=== PATIENT | male | born 1970 | race Caucasian/White ===

== ENCOUNTER 2024-03-24 21:50 | Emergency (ER) | payer BC, SELFPAY ==
--- NOTE | 2024-03-25 00:08 | ED.GENMED ---
History of Present Illness
General
Chief Complaint: Skin Problem
Source: patient
Exam Limitations: none
Time Seen by Provider: 03/24/24 23:47
Nursing documentation reviewed up to this point in time: agreed with
History of Present Illness
History of Present Illness:
Patient presents to ED secondary to redness and swelling over his left forearm noted this morning, which has increased in size as well as streaking of redness up his arm. Denies fever or chills. Denies nausea or vomiting. Denies trauma. Denies
recollection of insect bite. Denies itching sensation. Denies previous history of similar symptoms.
Past History
Past History
ED Past Medical History: Psychiatric (Anxiety) and Other (Migraines)
ED Past Surgical History: None
Social History
Tobacco: Non-smoker
Review of Systems
Review of Systems
Allergies reviewed?: Yes
All Other Systems: ROS reviewed and negative except as documented in HPI and ROS
Constitutional: Reports no symptoms; Denies fever
ABD/GI: Reports no symptoms
Musculoskeletal: Reports no symptoms
Skin: Reports other (forearm redness/swelling)
Neurological: Reports no symptoms
Phy Exam
Physical Exam
Physical Exam:
Physical Exam
General: no apparent distress, not acutely ill. afebrile
Head: nc/at. eomi
Neck: supple. normal range of motion
Neuro: alert and oriented. no focal neurological deficits
Skin: an approx 1cm area of induration/erythema noted over volar surface of left mid-forearm, with linear streaking of erythema extending up medial aspect upto elbow. no open drainage.
Psychiatric: well kept. interactive and cooperative
Extremities: no edema. no calf tenderness.
Course
Orders/Labs/Results
Orders:
Orders
03/25/24 00:07
Cephalexin Monohydrate [Keflex] 500 mg PO NOW STA
Vital Signs
Initial and Last Documented VS:
Initial Vital Signs
Temp Pulse Resp Pulse Ox
98.3 F 93 17 98
03/24/24 21:54 03/24/24 21:54 03/24/24 21:54 03/24/24 21:54
Last Documented Vital Signs
Temp Pulse Resp BP Pulse Ox
98.3 F 72 16 123/69 99
03/24/24 21:54 03/25/24 00:16 03/25/24 00:16 03/25/24 00:16 03/25/24 00:16
MDM/Problems Addressed
MDM/Problems Addressed:
History exam consistent with likely what appears to be an insect bite, with associated inflammatory changes. However, in light of associated pulmonary streaking, difficult to exclude potential development of superimposed infection. As such,
patient will be started on a short course of Keflex along with PCP follow-up as an outpatient. Despite penicillin allergy, which patient describes as something extremities with child, without really knowing symptoms, as well as having taken
amoxicillin without any difficulties, patient will be started on Keflex. Advised to return to ED with worsening symptoms.
*Critical Care Note
Total Time (30-74mins, 75-104mins- exclusive of procedures): Not Applicable
ED Attending Note
-
Portions of this chart may have been created with voice recognition software.� Occasional wrong word or��sound alike� substitutions may have occurred due to the inherent limitations of voice recognition software.
Discharge Plan
Departure
Patient Disposition: Home (Routine Discharge)
Date of Disposition: 03/25/24
Time of Disposition: 00:08
Patient with high blood pressure during this ER visit?: Yes
Discharge Problem:
Cellulitis
Instructions: Cellulitis (Skin Infection), Adult (DC)
Prescriptions:
New
cephalexin 500 mg capsule
500 mg PO Q8H Qty: 20 0RF
No Action
sumatriptan-naproxen [Treximet] 1 EACH tablet
1 ea PO DAILYPRN PRN (Reason: migraine)
Testerone Wipes
1 dose topical DAILY
sertraline 50 MG tablet
50 mg PO HS
Referrals:
Yocasta Oakes MD [Family Provider] -
Activity Restrictions/Additional Instructions:
As discussed, please follow-up with your primary care physician for reevaluation. Your prescription has been sent electronically to [facility] in [place]
Interventions
Interventions:
*Risk Screen - Suicide Last Done: 03/24/24 21:54
*General Assessment Last Done: 03/24/24 21:54
*Neglect/Abuse Screening Last Done: 03/24/24 21:54
*Nursing Disposition Last Done: 03/25/24 00:16
Discharge Date and Time
Discharge Date/Time: 03/25/24 00:17
Print Language: PERUVIAN
[2024-03-25] MEDS: KEFLEX 500 MG PO (00:14)
[2024-03-25 00:16] VITALS: BP 123/69
== END 2024-03-25 00:17 | disposition home or self-care (01) ==
LOC: EMR 21:50
PROVIDERS: EMERGENCY PHYSICIAN Emergency Medicine; FAMILY PHYSICIAN Family Medicine
DX: L03.114 Cellulitis of left upper limb (principal); F41.9 Anxiety disorder, unspecified
CPT/HCPCS: 99282

== ENCOUNTER → 2024-04-20 07:56 | Outpatient (REF) | payer OTHER, SELFPAY ==
[2024-04-20 08:53] LABS: % Basophils 0.7 % (0-2); % Eosinophils 2.5 % (0-6); % Immature Granulocytes 0.5 % (0-0.5); % Lymphocytes 27.7 % (20.5-51.1); % Monocytes 7.5 % (1.7-9.3); % Neutrophils 61.1 % (42.2-75.2); Absolute Eosinophils 0.2 10^3/uL (0-0.7); Absolute Lymphocytes 1.7 10^3/uL (1.2-3.4); Absolute Monocytes 0.5 10^3/uL (0.1-0.6); Absolute Neutrophils 3.7 10^3/uL (1.4-6.5); Hematocrit 43.2 % (39.0-52.0); Hemoglobin 15.6 g/dL (13.0-18.0); Mean Corp Hgb Conc. 36.1 g/dL (33.0-37.0); Mean Corpuscular Hgb 31.4 pg (27.0-31.0); Mean Corpuscular Volume 86.9 fL (80.0-94.0); Mean Platelet Volume 10.6 fL (7.4-10.4); Nucleated Red Blood Cells % 0 % (-); Platelet Count 247 10^3/uL (130-400); Red Blood Cell Count 4.97 10^6/uL (4.70-6.10); Red Cell Dist. Width 12.8 % (11.5-14.5); White Blood Cell Count 6.1 10^3/uL (4.8-10.8)
[2024-04-20 10:03] LABS: ALT (SGPT) 27 U/L (0-50); AST (SGOT) 23 U/L (17-59); Albumin 4.2 g/dl (3.5-5.0); Alkaline Phosphatase 62 U/L (38-126); Blood Urea Nitrogen 15 mg/dl (9-20); Calcium 9.1 mg/dl (8.4-10.2); Carbon Dioxide 28 mmol/L (22-30); Chloride 105 mmol/L (98-107); Glucose 86 mg/dl (70-99); Potassium 4.1 mmol/L (3.5-5.1); Sodium 140 mmol/L (135-145); Total Bilirubin 1.1 mg/dl (0.2-1.3); Total Protein 6.6 g/dl (6.3-8.2); eGFR > 60.00
[2024-04-20 10:12] LABS: Prolactin 13.5 ng/ml (3.7-17.9)
[2024-04-20 10:26] LABS: PSA, Total - Diagnostic 0.78 ng/ml (0.0-4.0)
[2024-04-20 10:28] LABS: Estradiol 55.9 pg/ml (5.4-66)
== END ==
LOC: REG 07:56
PROVIDERS: ATTENDING PHYSICIAN Urology; FAMILY PHYSICIAN Family Medicine
DX: E29.1 Testicular hypofunction (principal)
CPT/HCPCS: 36415; 80053; 82670; 84146; 84153; 84270; 84402; 84403; 85025

== ENCOUNTER → 2024-05-18 08:03 | Outpatient (REF) | payer OTHER, SELFPAY ==
[2024-05-19 19:10] LABS: % Free Testosterone 2.3 % (1.6-2.9); Free Testosterone 100 pg/mL (47-244); Sex Hormone Binding Globulin 22 nmol/L (19-76); Total Testosterone 444 ng/dL (300-890)
== END ==
LOC: REG 08:03
PROVIDERS: ATTENDING PHYSICIAN Urology; FAMILY PHYSICIAN Family Medicine
DX: N52.9 Male erectile dysfunction, unspecified (principal); E29.1 Testicular hypofunction
CPT/HCPCS: 36415; 84270; 84402; 84403

== ENCOUNTER → 2024-07-09 08:05 | Outpatient (REF) | payer OTHER, SELFPAY ==
[2024-07-09 09:06] LABS: % Basophils 1.1 % (0-2); % Eosinophils 3.2 % (0-6); % Immature Granulocytes 1.3 % (0-0.5); % Lymphocytes 31.7 % (20.5-51.1); % Monocytes 13.3 % (1.7-9.3); % Neutrophils 49.4 % (42.2-75.2); Absolute Basophils 0.1 10^3/uL (0-0.2); Absolute Eosinophils 0.2 10^3/uL (0-0.7); Absolute Immature Granulocytes 0.1 10^3/uL (0-0.05); Absolute Lymphocytes 1.7 10^3/uL (1.2-3.4); Absolute Monocytes 0.7 10^3/uL (0.1-0.6); Absolute Neutrophils 2.6 10^3/uL (1.4-6.5); Hematocrit 45.1 % (39.0-52.0); Mean Corp Hgb Conc. 35.5 g/dL (33.0-37.0); Mean Corpuscular Hgb 30.9 pg (27.0-31.0); Mean Corpuscular Volume 87.1 fL (80.0-94.0); Mean Platelet Volume 10.6 fL (7.4-10.4); Nucleated Red Blood Cells % 0 % (-); Platelet Count 237 10^3/uL (130-400); Red Blood Cell Count 5.18 10^6/uL (4.70-6.10); Red Cell Dist. Width 12.5 % (11.5-14.5); White Blood Cell Count 5.3 10^3/uL (4.8-10.8)
== END ==
LOC: REG 08:05
PROVIDERS: ATTENDING PHYSICIAN Urology; FAMILY PHYSICIAN Family Medicine
DX: E29.1 Testicular hypofunction (principal)
CPT/HCPCS: 36415; 84403; 85025

== ENCOUNTER → 2024-07-27 10:02 | Outpatient (REF) | payer OTHER, SELFPAY ==
[2024-07-27 11:35] LABS: Blood Urea Nitrogen 12 mg/dl (9-20); Calcium 9.4 mg/dl (8.4-10.2); Carbon Dioxide 28 mmol/L (22-30); Chloride 102 mmol/L (98-107); Glucose 85 mg/dl (70-99); Potassium 4.1 mmol/L (3.5-5.1); Sodium 143 mmol/L (135-145); eGFR > 60.00
== END ==
LOC: REG 10:02
PROVIDERS: ATTENDING PHYSICIAN Orthopaedic Surgery Hand Surgery; FAMILY PHYSICIAN Family Medicine
DX: Z01.818 Encounter for other preprocedural examination (principal)
CPT/HCPCS: 36415; 80048; 93005

== ENCOUNTER → 2025-01-19 06:59 | Outpatient (REF) | payer OTHER, SELFPAY ==
[2025-01-19 07:47] LABS: % Basophils 0.9 % (0-2); % Eosinophils 3.6 % (0-6); % Immature Granulocytes 0.3 % (0-0.5); % Monocytes 8.8 % (1.7-9.3); % Neutrophils 56.4 % (42.2-75.2); Absolute Basophils 0.1 10^3/uL (0-0.2); Absolute Eosinophils 0.2 10^3/uL (0-0.7); Absolute Lymphocytes 1.9 10^3/uL (1.2-3.4); Absolute Monocytes 0.6 10^3/uL (0.1-0.6); Absolute Neutrophils 3.6 10^3/uL (1.4-6.5); Hematocrit 46.2 % (39.0-52.0); Hemoglobin 16.4 g/dL (13.0-18.0); Mean Corp Hgb Conc. 35.5 g/dL (33.0-37.0); Mean Corpuscular Hgb 31.4 pg (27.0-31.0); Mean Corpuscular Volume 88.3 fL (80.0-94.0); Mean Platelet Volume 11.1 fL (7.4-10.4); Nucleated Red Blood Cells % 0 % (-); Platelet Count 224 10^3/uL (130-400); Red Blood Cell Count 5.23 10^6/uL (4.70-6.10); Red Cell Dist. Width 12.6 % (11.5-14.5); White Blood Cell Count 6.3 10^3/uL (4.8-10.8)
[2025-01-19 09:13] LABS: Absolute Neutrophils -Man Diff 3.2 10^3/uL (1.4-6.5); Band Neutrophils 0 % (0-3); Eosinophils 1 % (0-6); Lymphocytes 39 % (20-51); Monocytes 8 % (2-9); Normal RBC Morphology Yes; Platelets Checked Yes; Segmented Neutrophils 52 % (42-75); Total Cells Counted 100
[2025-01-19 11:52] LABS: ALT (SGPT) 27 U/L (0-50); AST (SGOT) 22 U/L (17-59); Albumin 4.4 g/dl (3.5-5.0); Alkaline Phosphatase 73 U/L (38-126); Blood Urea Nitrogen 16 mg/dl (9-20); Calcium 9.1 mg/dl (8.4-10.2); Carbon Dioxide 27 mmol/L (22-30); Chloride 103 mmol/L (98-107); Glucose 81 mg/dl (70-99); Potassium 4.2 mmol/L (3.5-5.1); Sodium 141 mmol/L (135-145); Total Bilirubin 1.3 mg/dl (0.2-1.3); Total Protein 6.9 g/dl (6.3-8.2); eGFR > 60.00
[2025-01-19 12:32] LABS: PSA, Total - Screen 0.79 ng/ml (0.0-4.0)
== END ==
LOC: REG 06:59
PROVIDERS: ATTENDING PHYSICIAN Urology; FAMILY PHYSICIAN Family Medicine
DX: E29.1 Testicular hypofunction (principal)
CPT/HCPCS: 36415; 80053; 84403; 85025; G0103

== ENCOUNTER 2025-02-20 13:34 | Emergency (ER) | payer OTHER, SELFPAY ==
[2025-02-20 13:39] VITALS: BP 162/76
[2025-02-20 14:03] LABS: % Basophils 0.8 % (0-2); % Eosinophils 1.8 % (0-6); % Immature Granulocytes 0.4 % (0-0.5); % Lymphocytes 23.4 % (20.5-51.1); % Monocytes 7.3 % (1.7-9.3); % Neutrophils 66.3 % (42.2-75.2); Absolute Basophils 0.1 10^3/uL (0-0.2); Absolute Eosinophils 0.1 10^3/uL (0-0.7); Absolute Lymphocytes 1.8 10^3/uL (1.2-3.4); Absolute Monocytes 0.6 10^3/uL (0.1-0.6); Absolute Neutrophils 5.1 10^3/uL (1.4-6.5); Hematocrit 45.3 % (39.0-52.0); Hemoglobin 16.4 g/dL (13.0-18.0); Mean Corp Hgb Conc. 36.2 g/dL (33.0-37.0); Mean Corpuscular Hgb 31.6 pg (27.0-31.0); Mean Corpuscular Volume 87.3 fL (80.0-94.0); Nucleated Red Blood Cells % 0 % (-); Platelet Count 253 10^3/uL (130-400); Red Blood Cell Count 5.19 10^6/uL (4.70-6.10); Red Cell Dist. Width 12.9 % (11.5-14.5); White Blood Cell Count 7.7 10^3/uL (4.8-10.8)
[2025-02-20 14:05] LABS: ALT (SGPT) 24 U/L (0-50); AST (SGOT) 23 U/L (17-59); Albumin 4.4 g/dl (3.5-5.0); Alkaline Phosphatase 66 U/L (38-126); Blood Urea Nitrogen 12 mg/dl (9-20); Calcium 8.6 mg/dl (8.4-10.2); Carbon Dioxide 25 mmol/L (22-30); Chloride 108 mmol/L (98-107); Glucose 121 mg/dl (70-99); Potassium 3.8 mmol/L (3.5-5.1); Sodium 141 mmol/L (135-145); Total Protein 7.1 g/dl (6.3-8.2); eGFR > 60.00
[2025-02-20 14:16] LABS: Troponin I < 0.012 ng/ml
[2025-02-20 15:27] VITALS: BP 134/86
[2025-02-20 16:00] VITALS: BP 132/83
--- NOTE | 2025-02-20 16:09 | ED.GENMED ---
History of Present Illness
General
Chief Complaint: Chest Pain
Source: patient
Time Seen by Provider: 02/20/25 15:16
History of Present Illness
History of Present Illness:
54-year-old male presents to the emergency room complaining of having a fluttering in his chest. Patient feels these episodes intermittently. No associated tightness, shortness of breath, diaphoresis. No fever or chills. Patient denies any
change in medications recently. 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
Past History
Past History
ED Past Medical History: Psychiatric (Anxiety) and Other (Migraines)
ED Past Surgical History: None
Social History
Tobacco: Non-smoker
Phy Exam
Physical Exam
Physical Exam:
General: Awake, Alert, Oriented X3. No acute distress.
Vitals: unremarkable
Head: Atraumatic
Eyes: Pupils equal, EOMI
Throat: Airway intact, no exudates
Neck: Trachea midline
Lungs: Clear and equal b/l
Heart: Regular rate, no murmurs
Abd: Soft, Nontender, No pulsatile mass
Neuro: Nonfocal
Skin: Warm, dry, no rash
Extremities: pulses equal b/l, no edema
Scores
Heart Score for Chest Pain Patients
STEMI patient?: No
History: Slightly or Non-Suspicious
ECG: Normal
Age: >45 - <65 years
Risk Factors: 1 or 2 Risk Factors
Troponin: </= Normal Limit
Heart Score for Chest Pain Patients: 2
Heart Score Risk: 2.5% MACE over next 6 weeks
Course
Orders/Labs/Results
Orders:
Orders
02/20/25 13:35
Electrocardiogram (*1) Urgent
Reason for Study: Chest Pain
EKG- Treatment ONCE
02/20/25 13:45
Complete Blood Count/With Diff Urgent
Comprehensive Metabolic Panel Urgent
Troponin I Urgent
02/20/25 16:09
CR Chest - 2 Views Urgent
Comment:
Reason For Exam: chest discomfort and 'fluttering'
Abnormal Lab Results
02/20/25
13:45
MCH 31.6 H pg
(27.0-31.0)
MPV 11.0 H fL
(7.4-10.4)
Chloride 108 H mmol/L
(98-107)
Glucose 121 H mg/dl
(70-99)
02/20/25 13:45
02/20/25 13:45
Vital Signs
Initial and Last Documented VS:
Initial Vital Signs
Temp Pulse Resp BP Pulse Ox
98.7 F 54 16 162/76 97
02/20/25 13:39 02/20/25 13:39 02/20/25 13:39 02/20/25 13:39 02/20/25 13:39
Last Documented Vital Signs
Temp Pulse Resp BP Pulse Ox
98.7 F 76 15 138/95 99
02/20/25 13:39 02/20/25 17:00 02/20/25 17:00 02/20/25 17:00 02/20/25 17:00
MDM/Problems Addressed
Differential Diagnosis Includes:
PACs, PVCs, paroxysmal atrial fibrillation, SVT
MDM/Problems Addressed:
Patient was experiencing palpitations earlier today. EKG here shows sinus rhythm with some PACs no abnormal rhythms noted on cardiac monitoring. Labs unremarkable. Recommend outpatient follow-up with his primary care provider and cardiology.
*Radiology
Radiology exam reviewed: preliminary read by ED provider (No acute abnormality)
*Pulse Oximetry
Patient hypoxic: no
*EKG
Interpreted by ED Provider?: Yes
Heart Rate: 102
Rate: tachycardiac
Rhythm: PVC's and sinus tachycardia
[place]: normal axis
Interval: normal interval
QRS Pattern: normal QRS
Ischemia: no ischemia
*Trucker Hand Interpretation
Rate: tachycardiac
Interpretation: abnormal
Rhythm: sinus tachycardia
*Critical Care Note
Total Time (30-74mins, 75-104mins- exclusive of procedures): Not Applicable
ED Attending Note
-
Portions of this chart may have been created with voice recognition software.� Occasional wrong word or��sound alike� substitutions may have occurred due to the inherent limitations of voice recognition software.
Discharge Plan
Departure
Patient Disposition: Home (Routine Discharge)
Date of Disposition: 02/20/25
Time of Disposition: 17:10
Patient with high blood pressure during this ER visit?: No
Condition: Good
Discharge Problem:
Palpitations
Instructions: Palpitations
Prescriptions:
No Action
sumatriptan-naproxen [Treximet] 1 EACH tablet
1 ea PO DAILYPRN PRN (Reason: migraine)
Testerone Wipes
1 dose topical DAILY
sertraline 50 MG tablet
50 mg PO HS
cephalexin 500 mg capsule
500 mg PO Q8H Qty: 20 0RF
Referrals:
Kaleb Bernard MD [Active] -
Yocasta Oakes MD [Family Provider] -
Interventions
Interventions:
*Risk Screen - Suicide Last Done: 02/20/25 13:41
*General Assessment Last Done: 02/20/25 15:25
*Neglect/Abuse Screening Last Done: 02/20/25 13:41
*ED- Fall Risk Assessment Last Done: 02/20/25 15:25
*ED COVID-19 Vaccine History Last Done: 02/20/25 15:25
*Nursing Disposition Last Done: 02/20/25 17:18
ED- Cardiac Assessment Last Done: 02/20/25 16:01
Discharge Date and Time
Discharge Date/Time: 02/20/25 17:19
Print Language: NAURUAN
[2025-02-20 17:00] VITALS: BP 138/95
== END 2025-02-20 17:19 | disposition home or self-care (01) ==
LOC: EMR 13:34
PROVIDERS: Emergency Medicine; EMERGENCY PHYSICIAN Emergency Medicine; FAMILY PHYSICIAN Family Medicine
DX: R00.2 Palpitations (principal); R07.9 Chest pain, unspecified; I49.3 Ventricular premature depolarization
CPT/HCPCS: 99285; 71046; 80053; 84484; 85025; 93005

== ENCOUNTER 2025-03-02 19:47 | Emergency (ER) | payer OTHER, SELFPAY ==
[2025-03-02 19:56] VITALS: BP 151/87
[2025-03-02 20:19] LABS: % Basophils 0.7 % (0-2); % Eosinophils 2.3 % (0-6); % Immature Granulocytes 0.1 % (0-0.5); % Lymphocytes 30.2 % (20.5-51.1); % Monocytes 9.4 % (1.7-9.3); % Neutrophils 57.3 % (42.2-75.2); Absolute Basophils 0.1 10^3/uL (0-0.2); Absolute Eosinophils 0.2 10^3/uL (0-0.7); Absolute Lymphocytes 2.1 10^3/uL (1.2-3.4); Absolute Monocytes 0.7 10^3/uL (0.1-0.6); Hematocrit 44.5 % (39.0-52.0); Hemoglobin 16.2 g/dL (13.0-18.0); Mean Corp Hgb Conc. 36.4 g/dL (33.0-37.0); Mean Corpuscular Hgb 31.5 pg (27.0-31.0); Mean Corpuscular Volume 86.6 fL (80.0-94.0); Mean Platelet Volume 11.1 fL (7.4-10.4); Nucleated Red Blood Cells % 0 % (-); Platelet Count 238 10^3/uL (130-400); Red Blood Cell Count 5.14 10^6/uL (4.70-6.10); Red Cell Dist. Width 12.7 % (11.5-14.5); White Blood Cell Count 6.9 10^3/uL (4.8-10.8)
[2025-03-02 20:30] LABS: ALT (SGPT) 21 U/L (0-50); AST (SGOT) 19 U/L (17-59); Albumin 4.2 g/dl (3.5-5.0); Alkaline Phosphatase 54 U/L (38-126); Blood Urea Nitrogen 16 mg/dl (9-20); Calcium 9.3 mg/dl (8.4-10.2); Carbon Dioxide 27 mmol/L (22-30); Chloride 108 mmol/L (98-107); Glucose 106 mg/dl (70-99); Potassium 3.8 mmol/L (3.5-5.1); Sodium 142 mmol/L (135-145); Total Bilirubin 0.9 mg/dl (0.2-1.3); Total Protein 7.1 g/dl (6.3-8.2); eGFR > 60.00
[2025-03-02 20:41] LABS: Troponin I < 0.012 ng/ml
[2025-03-02 22:22] VITALS: BP 135/85
[2025-03-02 23:45] VITALS: BMI 26.8
[2025-03-02 23:48] VITALS: BP 138/87
[2025-03-02 23:49] VITALS: BP 138/87
[2025-03-03] VITALS: BP 130/87
[2025-03-03 01:00] VITALS: BP 127/86
--- NOTE | 2025-03-03 01:21 | ED.GENMED ---
History of Present Illness
General
Chief Complaint: Chest Problem
Source: patient and spouse
Exam Limitations: none
Time Seen by Provider: 03/02/25 23:49
Nursing documentation reviewed up to this point in time: agreed with
History of Present Illness
History of Present Illness:
54-year-old male past medical history of hypertension kidney stones presenting to the emergency department today with concerns of palpitations mainly worsened with exertion. Was here for similar symptoms 2 weeks ago and has a follow-up with
cardiology in 3 days. Today he had an episode of palpitations and had an EKG done by his [employer]. He discussed this with his friend who is a nurse that told him to go to the ER. Denies any chest pain no ongoing symptoms at this point. Denies
any changes in medications, caffeine use drug use.
Past History
Past History
ED Past Medical History: Psychiatric (Anxiety) and Other (Migraines)
ED Past Surgical History: None
Social History
Tobacco: Non-smoker
Review of Systems
Review of Systems
Allergies reviewed?: Yes
All Other Systems: ROS reviewed and negative except as documented in HPI and ROS
Phy Exam
Physical Exam
Physical Exam:
GENERAL: Alert , in no apparent distress
EYE: pupils equal and reactive
NECK: Supple, no significant adenopathy.
ENT: o/p clr, mmm.
CARDIAC: Regular rate and rhythm .
LUNGS: Clear breath sounds bilaterally, no acute respiratory distress, no wheezes/rales/rhonchi
ABDOMEN: Soft, without focal tenderness, no r/g, no cvat
NEUROLOGICAL: Alert and oriented, no focal neuro deficits
SKIN: Warm and dry, skin intact.
MUSCULOSKELETAL: No edema, well perfused.
PSYCH: Normal and appropriate interaction.
Course
Orders/Labs/Results
Orders:
Orders
03/02/25 19:47
EKG [Electrocardiogram (*1)] Urgent
Reason for Study: Chest Pain
03/02/25 19:48
EKG- Treatment ONCE
03/02/25 20:09
Complete Blood Count/With Diff Urgent
Comprehensive Metabolic Panel Urgent
TSH Reflex To Free T4 Urgent
Comment: ADDED
Troponin I Urgent
03/03/25 00:24
Add On- LAB Urgent
Tests Added?: tsh free t4
Abnormal Lab Results
03/02/25
20:09
MCH 31.5 H pg
(27.0-31.0)
MPV 11.1 H fL
(7.4-10.4)
Absolute Monos (auto) 0.7 H 10^3/uL
(0.1-0.6)
Monocytes % 9.4 H %
(1.7-9.3)
Chloride 108 H mmol/L
(98-107)
Glucose 106 H mg/dl
(70-99)
03/02/25 20:09
03/02/25 20:09
Vital Signs
Initial and Last Documented VS:
Initial Vital Signs
Temp Pulse Resp BP Pulse Ox
98.3 F 84 20 151/87 98
03/02/25 19:56 03/02/25 19:56 03/02/25 19:56 03/02/25 19:56 03/02/25 19:56
Last Documented Vital Signs
Temp Pulse Resp BP Pulse Ox
98.3 F 85 19 127/86 97
03/02/25 19:56 03/03/25 01:15 03/03/25 01:15 03/03/25 01:00 03/03/25 01:00
MDM/Problems Addressed
MDM/Problems Addressed:
54-year-old male presenting to the emergency department today with concerns of palpitations. Apple Watch recorded a rhythm. Be potentially consistent with bigeminy though unclear how reliable this reading was. Here he does have occasional PVCs.
PVCs as the cause of his symptoms are likely. Does have close follow-up no evidence of any at this point no concerning features on the monitor or twelve-lead here. Stable for outpatient management return precautions given.
*Critical Care Note
Total Time (30-74mins, 75-104mins- exclusive of procedures): Not Applicable
ED Attending Note
-
Portions of this chart may have been created with voice recognition software.� Occasional wrong word or��sound alike� substitutions may have occurred due to the inherent limitations of voice recognition software.
Discharge Plan
Departure
Patient Disposition: Home (Routine Discharge)
Date of Disposition: 03/03/25
Time of Disposition: 01:21
Patient with high blood pressure during this ER visit?: No
Condition: Good
Covid-19: Not Applicable
Discharge Problem:
Heart palpitations, Frequent PVCs
Instructions: Ventricular premature beats
Prescriptions:
No Action
sumatriptan-naproxen [Treximet] 1 EACH tablet
1 ea PO DAILYPRN PRN (Reason: migraine)
Testerone Wipes
1 dose topical DAILY
sertraline 50 MG tablet
50 mg PO HS
cephalexin 500 mg capsule
500 mg PO Q8H Qty: 20 0RF
Referrals:
UNKNOWN - PT DOES,NOT KNOW [Family Provider]
Activity Restrictions/Additional Instructions:
You came to the emergency department today with concerns of palpitations. You may have been having PVCs which would explain your symptoms. Please follow closely with cardiology. Return for any worsening, new or concerning symptoms.
Interventions
Interventions:
*Risk Screen - Suicide Last Done: 03/02/25 19:56
*General Assessment Last Done: 03/02/25 19:56
*Neglect/Abuse Screening Last Done: 03/02/25 19:56
*ED- Fall Risk Assessment Last Done: 03/02/25 23:48
*ED COVID-19 Vaccine History Last Done: 03/02/25 23:48
*Nursing Disposition Last Done: 03/03/25 01:28
ED- Cardiac Assessment Last Done: 03/02/25 23:50
ED- Pulmonary Assessment Last Done: 03/02/25 23:50
Discharge Date and Time
Discharge Date/Time: 03/03/25 01:29
Print Language: LITHUANIAN
[2025-03-03 02:34] LABS: TSH Reflex To Free T4 2.47 uIU/ml (0.47-4.68)
== END 2025-03-03 01:29 | disposition home or self-care (01) ==
LOC: EMR 19:47
PROVIDERS: Emergency Medicine; EMERGENCY PHYSICIAN Student in an Organized Health Care Education/Training Program
DX: R00.2 Palpitations (principal); I49.3 Ventricular premature depolarization; I10 Essential (primary) hypertension; F41.9 Anxiety disorder, unspecified; Z87.442 Personal history of urinary calculi
CPT/HCPCS: 99283; 80053; 84443; 84484; 85025; 93005

== ENCOUNTER → 2025-03-14 07:25 | Outpatient (REF) | payer OTHER, SELFPAY | LOC: HWRCS 07:25 | PROVIDERS: ATTENDING PHYSICIAN Physician Assistant; FAMILY PHYSICIAN Family Medicine | DX: R00.2 Palpitations (principal); I35.1 Nonrheumatic aortic (valve) insufficiency | CPT/HCPCS: 93306 ==

== ENCOUNTER → 2025-08-12 08:26 | Outpatient (REF) | payer OTHER, SELFPAY ==
[2025-08-12 09:59] LABS: Hematocrit 44.7 % (39.0-52.0); Hemoglobin 15.7 g/dL (13.0-18.0); Mean Corp Hgb Conc. 35.1 g/dL (33.0-37.0); Mean Corpuscular Volume 89.2 fL (80.0-94.0); Nucleated Red Blood Cells % 0 % (-); Platelet Count 240 10^3/uL (130-400); Red Cell Dist. Width 12.8 % (11.5-14.5)
== END ==
LOC: REG 08:26
PROVIDERS: FAMILY PHYSICIAN Family Medicine
DX: E29.1 Testicular hypofunction (principal)
CPT/HCPCS: 36415; 84403; 85025

== ENCOUNTER → 2025-10-03 09:00 | Outpatient (REF) | payer OTHER, SELFPAY ==
[2025-10-03 10:27] LABS: Hematocrit 44.5 % (39.0-52.0); Hemoglobin 16.1 g/dL (13.0-18.0); Mean Corp Hgb Conc. 36.2 g/dL (33.0-37.0); Mean Corpuscular Volume 93.3 fL (80.0-94.0); Nucleated Red Blood Cells % 0 % (-); Platelet Count 224 10^3/uL (130-400); Red Cell Dist. Width 13.1 % (11.5-14.5)
[2025-10-03 10:35] LABS: ALT (SGPT) 41 U/L (0-50); AST (SGOT) 27 U/L (17-59); Albumin 4.1 g/dl (3.5-5.0); Alkaline Phosphatase 62 U/L (38-126); HDL Cholesterol 34 mg/dl; LDL Cholesterol, Calculated 109 mg/dl; Total Protein 6.8 g/dl (6.3-8.2); Very Low Density Lipoprotein 22 mg/dl (0-30)
== END ==
LOC: REG 09:00
PROVIDERS: ATTENDING PHYSICIAN Urology; FAMILY PHYSICIAN Family Medicine
DX: E78.2 Mixed hyperlipidemia (principal); E29.1 Testicular hypofunction
CPT/HCPCS: 36415; 80061; 80076; 84403; 85025